=== PATIENT | male | born 1965 | race Two or more races ===

== ENCOUNTER 2023-03-05 04:06 | Emergency (ER) | payer OTHER ==
[~2023-03-05] VITALS: Ht 170.2 cm; Wt 65.0 kg
[2023-03-05 04:35] LABS: Basophils # (auto) 0.1 10 ^3/uL (0-0.2); Basophils % (auto) 0.5 % (0.0-2.0); Eosinophils # (auto) 0.3 10 ^3/uL (0-0.8); Eosinophils % (auto) 3.1 % (0.0-7.0); Hematocrit 33.5 % (41.0-53.0); Lymphocytes % (auto) 18.9 % (10.0-50.0); Mean Corpuscular Hemoglobin 27.7 pg (28.0-32.0); Mean Corpuscular Hgb Conc. 32.8 g/dL (32.0-36.0); Mean Corpuscular Volume 84.6 fL (80.0-100.0); Monocytes # (auto) 1.1 10 ^3/uL (0-1.3); Monocytes % (auto) 10.4 % (0.0-12.0); Neutrophils % (auto) 67.1 % (37.0-80.0); Nucleated Red Blood Cells % 0.5 %; Red Blood Cells 3.96 10^6/uL (4.5-5.90); Red Cell Distribution Width 16.5 % (11.8-14.3); White Blood Cell 10.5 10^3/uL (4.4-10.8)
[2023-03-05 04:46] VITALS: TEMP 98.7
[2023-03-05 04:46] LABS: Alanine Aminotransferase 29 U/L (7-40); Albumin 4.3 g/dL (3.2-4.8); Alkaline Phosphatase 109 U/L (46-116); Aspartate Aminotransferase 14 U/L (13-40); Bilirubin, Total 0.5 mg/dL (0.2-1.0); Blood Urea Nitrogen 19 mg/dL (9-23); Calcium 9.1 mg/dL (8.7-10.4); Chloride 106 mmol/L (98-107); Glucose 162 mg/dL (74-106); Potassium 4.2 mmol/L (3.5-5.1); Sodium 137 mmol/L (136-145); Total Protein 7.2 g/dL (5.7-8.2)
[2023-03-05 04:47] VITALS: PULSE 74; RESP 12; O2SAT 98
[2023-03-05 04:51] LABS: INR 1.08 (0.9-1.15); Partial Thromboplastin Time 28.4 SEC (24.5-34.5); Prothrombin Time 11.3 sec (9.3-11.8)
[2023-03-05 05:03] LABS: Anion Gap 9 (5-15); Carbon Dioxide 22 mmol/L (20-30)
[2023-03-05] MEDS ORDERED: IOHEXOL 350 MG/ML 100ML IJ ONE (05:19)
[2023-03-05] MEDS ORDERED: MORPHINE SULFATE 4 MG/ML SYR/VIAL IV ONE (06:15)
[2023-03-05 06:41] LABS: Urine WBC None Seen /hpf (0 - 3)
[2023-03-05 07:29] LABS: Urine Bacteria NONE SEEN /hpf (None Seen); Urine Blood Negative /uL (Negative); Urine Clarity Clear (Clear); Urine Color Straw (Yellow); Urine Protein, UAD Negative (Negative); Urine Specific Gravity 1.034 (1.001-1.035); Urine Urobilinogen Normal (Negative)
[2023-03-05 07:44] LABS: COVID19 ANTIGEN SOFIA FIA NEGATIVE (NEGATIVE)
[2023-03-05 09:26] VITALS: PULSE 64; RESP 20; O2SAT 96
[2023-03-05 12:28] VITALS: BP 108/50; PULSE 79; RESP 18; O2SAT 95
== END 2023-03-05 12:56 | disposition home or self-care (01) ==
LOC: ER 04:06
DX: R06.00 Dyspnea, unspecified (principal); Z95.1 Presence of aortocoronary bypass graft; Z88.8 Allergy status to other drugs, medicaments and biological substances
CPT/HCPCS: 36415; 71275; 80053; 81001; 82962; 83605; 83735; 83880; 84484; 85025; 85379; 85610; 85730; 87040; 87426; 93005; 96374; 99285; J2270; Q9967

== ENCOUNTER 2023-03-11 15:02 | Inpatient (IN) | payer OTHER ==
[~2023-03-11] VITALS: Ht 160 cm; Wt 65.8 kg
[2023-03-11 15:30] VITALS: PULSE 74; RESP 16; O2SAT 96
[2023-03-11 15:32] LABS: Basophils # (auto) 0.1 10 ^3/uL (0-0.2); Basophils % (auto) 0.8 % (0.0-2.0); Eosinophils # (auto) 0.3 10 ^3/uL (0-0.8); Eosinophils % (auto) 3.1 % (0.0-7.0); Hemoglobin 11.5 g/dL (13.5-17.5); Lymphocytes # (auto) 1.2 10 ^3/uL (0.4-5.4); Lymphocytes % (auto) 13.2 % (10.0-50.0); Mean Corpuscular Hemoglobin 26.7 pg (28.0-32.0); Mean Corpuscular Hgb Conc. 32.1 g/dL (32.0-36.0); Mean Corpuscular Volume 83.4 fL (80.0-100.0); Monocytes % (auto) 10.7 % (0.0-12.0); Neutrophils # (auto) 6.7 10 ^3/uL (1.6-8.6); Neutrophils % (auto) 72.2 % (37.0-80.0); Nucleated Red Blood Cells % 0.1 %; Red Blood Cells 4.31 10^6/uL (4.5-5.90); White Blood Cell 9.3 10^3/uL (4.4-10.8)
[2023-03-11 15:50] LABS: Alanine Aminotransferase 60 U/L (7-40); Albumin 4.1 g/dL (3.2-4.8); Alkaline Phosphatase 141 U/L (46-116); Anion Gap 6 (5-15); Aspartate Aminotransferase 35 U/L (13-40); BUN/Creatinine Ratio 18.8 (10.0-20.0); Bilirubin, Total 0.3 mg/dL (0.2-1.0); Blood Urea Nitrogen 21 mg/dL (9-23); Carbon Dioxide 23 mmol/L (20-30); Chloride 108 mmol/L (98-107); Glucose 232 mg/dL (74-106); Magnesium 2.1 mg/dL (1.6-2.6); Potassium 4.7 mmol/L (3.5-5.1); Sodium 137 mmol/L (136-145)
[2023-03-11 15:51] LABS: Total Protein 6.7 g/dL (5.7-8.2)
[2023-03-11 15:59] LABS: INR 1.06 (0.9-1.15); Partial Thromboplastin Time 27.6 SEC (24.5-34.5); Prothrombin Time 11.1 sec (9.3-11.8)
[2023-03-11 16:20] LABS: Urine Bacteria NONE SEEN /hpf (None Seen); Urine Blood Negative /uL (Negative); Urine Clarity Clear (Clear); Urine Color Colorless (Yellow); Urine Protein, UAD Negative (Negative); Urine Specific Gravity 1.034 (1.001-1.035); Urine Urobilinogen Normal (Negative); Urine WBC <1 /hpf (0 - 3)
[2023-03-11] MEDS ORDERED: IOHEXOL 350 MG/ML 100ML IJ ONE (17:47)
[2023-03-11] MEDS ORDERED: NITROGLYCERIN 2% OINT 1GM PKG TD ONE (18:00)
[2023-03-11] MEDS ORDERED: MORPHINE SULFATE 4 MG/ML SYR/VIAL IV ONE (18:45)
[2023-03-11 19:25] VITALS: PULSE 78; RESP 18; O2SAT 97
[2023-03-11] MEDS ORDERED: DOCUSATE SOD 100 MG CAP PO PRN (22:00)
[2023-03-11] MEDS ORDERED: HYDROcodone-ACET 5/325MG TAB PO PRN (22:00)
[2023-03-11] MEDS ORDERED: MORPHINE SULFATE INJ 2 MG/ml SYRG IV PRN (22:00)
[2023-03-11] MEDS ORDERED: DEXTROSE (50%) 50ML SYRG IV PRN (22:00)
[2023-03-11] MEDS ORDERED: NITROGLYCERIN 0.4 MG SL TAB SL PRN (22:00)
[2023-03-11] MEDS ORDERED: ACETAMINOPHEN 325 MG TAB PO PRN (22:00)
[2023-03-11] MEDS ORDERED: EMPA1TAB3 PO (22:20)
[2023-03-11] MEDS ORDERED: LISI40TA16 PO (22:20)
[2023-03-11] MEDS ORDERED: ATOR-47 PO (22:20)
[2023-03-11] MEDS ORDERED: FAMO40TA7 PO (22:20)
[2023-03-11] MEDS ORDERED: CLOP75TA70 PO (22:20)
[2023-03-11] MEDS ORDERED: ASPI81CH49 PO (22:20)
[2023-03-11] MEDS ORDERED: MET50T PO (22:20)
[2023-03-11] MEDS: ACCU-CHEK COMFORT CURVE STRIP VI SCH (22:35)
[2023-03-11] MEDS: MORPHINE SULFATE INJ 2 MG/ml SYRG IV PRN (22:36)
[2023-03-11] MEDS: InsuLIN REG 1unit/0.01ml Soln (100units/ml) SC SCH (22:37)
[2023-03-11 23:52] VITALS: BP 142/63; PULSE 73; RESP 19; TEMP 98.4; O2SAT 100
[2023-03-12] VITALS (9 sets, daily range): BP systolic 107–142; BP diastolic 59–80; PULSE 60–73; RESP 16–19; TEMP 97.7–98.4; O2SAT 93–100
[2023-03-12] MEDS ORDERED: INSUINJ2 SC (00:15)
[2023-03-12] MEDS ORDERED: METF-372 PO (00:15)
[2023-03-12] MEDS: MORPHINE SULFATE INJ 2 MG/ml SYRG IV PRN ×3 (06:09→17:38)
[2023-03-12] MEDS: ACCU-CHEK COMFORT CURVE STRIP VI SCH ×4 (06:10→22:02)
[2023-03-12] MEDS: InsuLIN REG 1unit/0.01ml Soln (100units/ml) SC SCH ×4 (06:14→22:02)
[2023-03-12 06:40] LABS: Basophils # (auto) 0.1 10 ^3/uL (0-0.2); Eosinophils # (auto) 0.4 10 ^3/uL (0-0.8); Hemoglobin 11.8 g/dL (13.5-17.5); Lymphocytes # (auto) 1.8 10 ^3/uL (0.4-5.4); Monocytes # (auto) 1.1 10 ^3/uL (0-1.3); Neutrophils # (auto) 5.3 10 ^3/uL (1.6-8.6); White Blood Cell 8.7 10^3/uL (4.4-10.8)
[2023-03-12 06:43] LABS: Basophils % (auto) 0.8 % (0.0-2.0); Eosinophils % (auto) 4.9 % (0.0-7.0); Hematocrit 36.9 % (41.0-53.0); Lymphocytes % (auto) 21.2 % (10.0-50.0); Mean Corpuscular Hemoglobin 26.6 pg (28.0-32.0); Mean Corpuscular Volume 83.4 fL (80.0-100.0); Monocytes % (auto) 12.2 % (0.0-12.0); Neutrophils % (auto) 60.9 % (37.0-80.0); Red Blood Cells 4.42 10^6/uL (4.5-5.90); Red Cell Distribution Width 16.8 % (11.8-14.3)
[2023-03-12 06:57] LABS: Alanine Aminotransferase 54 U/L (7-40); Albumin 4.1 g/dL (3.2-4.8); Alkaline Phosphatase 116 U/L (46-116); Anion Gap 6 (5-15); Aspartate Aminotransferase 28 U/L (13-40); BUN/Creatinine Ratio 12.3 (10.0-20.0); Blood Urea Nitrogen 13 mg/dL (9-23); Calcium 9.3 mg/dL (8.5-10.1); Carbon Dioxide 27 mmol/L (20-30); Chloride 107 mmol/L (98-107); Glucose 149 mg/dL (74-106); Sodium 140 mmol/L (136-145)
[2023-03-12 06:58] LABS: Bilirubin, Total 0.4 mg/dL (0.2-1.0)
[2023-03-12 07:02] LABS: Potassium 5.9 mmol/L (3.5-5.1)
[2023-03-12] MEDS ORDERED: SODIUM ZIRCONIUM CYCL 10 GM PAK PO ONE (07:15)
[2023-03-12] MEDS: ASPirin 81 mg TAB PO SCH (09:20)
[2023-03-12] MEDS: FAMOTIDINE 20 MG TAB PO SCH ×2 (09:21→21:56)
[2023-03-12] MEDS: LISINOPRIL 20 MG TAB PO SCH (09:21)
[2023-03-12] MEDS: CLOPIDOGREL BISULFATE 75 MG TAB PO SCH (09:22)
[2023-03-12] MEDS: EMPAGLIFLOZIN 10 MG TAB PO SCH (09:22)
[2023-03-12] MEDS: METOPROLOL TARTRATE 50 MG TAB PO SCH ×2 (09:23→21:56)
[2023-03-12] MEDS: ATORVASTATIN 20 MG TAB PO SCH (09:24)
[2023-03-12] MEDS ORDERED: PATIENTS OWN MEDICATION (Aspirin 1 TAB) PO SCH (10:00)
[2023-03-12] MEDS ORDERED: PATIENTS OWN MEDICATION (Famotidine 1 TAB) PO SCH (10:00)
[2023-03-12] MEDS ORDERED: PATIENTS OWN MEDICATION (Atorvastatin Calcium 1 TAB) PO SCH (10:00)
[2023-03-12] MEDS ORDERED: PATIENTS OWN MEDICATION (Lisinopril 0.5 TAB) PO SCH (10:00)
[2023-03-13] VITALS (7 sets, daily range): BP systolic 119–147; BP diastolic 48–89; PULSE 61–69; RESP 16–20; TEMP 97.4–98.2; O2SAT 96–98
[2023-03-13] MEDS: MORPHINE SULFATE INJ 2 MG/ml SYRG IV PRN (02:04)
[2023-03-13] MEDS: ACCU-CHEK COMFORT CURVE STRIP VI SCH ×3 (06:54→16:36)
[2023-03-13] MEDS: InsuLIN REG 1unit/0.01ml Soln (100units/ml) SC SCH ×3 (06:54→16:53)
[2023-03-13] MEDS: ASPirin 81 mg TAB PO SCH (09:14)
[2023-03-13] MEDS: FAMOTIDINE 20 MG TAB PO SCH (09:15)
[2023-03-13] MEDS: LISINOPRIL 20 MG TAB PO SCH (09:17)
[2023-03-13] MEDS: EMPAGLIFLOZIN 10 MG TAB PO SCH (09:25)
[2023-03-13] MEDS: ATORVASTATIN 20 MG TAB PO SCH (09:26)
[2023-03-13] MEDS: CLOPIDOGREL BISULFATE 75 MG TAB PO SCH (09:26)
[2023-03-13] MEDS: METOPROLOL TARTRATE 50 MG TAB PO SCH (09:27)
[2023-03-13] MEDS ORDERED: ATOR20TA50 PO (17:09)
[2023-03-13] MEDS ORDERED: LISI20TA56 PO (17:09)
[2023-03-13 18:36] LABS: Chloride 104 mmol/L (98-107); Sodium 139 mmol/L (136-145)
[2023-03-13 18:37] LABS: Anion Gap 8 (5-15); Calcium 9.5 mg/dL (8.5-10.1); Carbon Dioxide 27 mmol/L (20-30)
[2023-03-13 18:42] LABS: BUN/Creatinine Ratio 12.7 (10.0-20.0); Blood Urea Nitrogen 13 mg/dL (9-23); Glucose 137 mg/dL (74-106)
== END 2023-03-13 20:14 | disposition home or self-care (01) | DRG 311 ==
LOC: ER 15:02 → EDSEX 15:02 → EDBD 15:02 → TELE 22:04 → TELE-EAST 23:40
PROVIDERS: ADMIT Nurse Practitioner Family; ATTEND Internal Medicine
DX: I24.9 Acute ischemic heart disease, unspecified (principal); R07.9 Chest pain, unspecified; K21.9 Gastro-esophageal reflux disease without esophagitis; E11.65 Type 2 diabetes mellitus with hyperglycemia; E78.5 Hyperlipidemia, unspecified; Z95.1 Presence of aortocoronary bypass graft; I11.9 Hypertensive heart disease without heart failure; I25.10 Atherosclerotic heart disease of native coronary artery without angina pectoris; I25.2 Old myocardial infarction; Z82.49 Family history of ischemic heart disease and other diseases of the circulatory system; Z83.3 Family history of diabetes mellitus; Z87.891 Personal history of nicotine dependence; Z88.8 Allergy status to other drugs, medicaments and biological substances; Z95.5 Presence of coronary angioplasty implant and graft; Z63.4 Disappearance and death of family member
CPT/HCPCS: 36415; 71045; 71275; 80048; 80053; 81001; 82962; 83036; 83690; 83735; 83880; 84439; 84443; 84484; 85025; 85379; 85610; 85730; 93005; 93306; G0378; J1815